=== PATIENT | female | born 1995 | race Caucasian/White ===

== ENCOUNTER 2018-05-25 13:22 | Emergency (ER) | payer OTHER ==
[~2018-05-25] VITALS: Ht 170.2 cm; Wt 65.8 kg
[~2018-05-25 13:22] MED LIST: ADVIL100 M2; APAP500; FLAGYL500 MG PO; NORCO 5-325 TA1 EACH PO
[2018-05-25 13:43] LABS: URINE BILIRUBIN NEGATIVE (Negative); URINE BLOOD NEGATIVE (Negative); URINE CLARITY CLEAR; URINE COLOR YELLOW; URINE GLUCOSE-RANDOM* NEGATIVE (Negative); URINE KETONES NEGATIVE (Negative); URINE LEUKOCYTES-REFLEX NEGATIVE (Negative); URINE NITRITE-REFLEX NEGATIVE (Negative); URINE PROTEIN (DIPSTICK) NEGATIVE (Negative); URINE SPECIFIC GRAVITY 1.015 (1.005-1.035); URINE UROBILINOGEN 0.2 E.U./dl (0.2-1.0)
[2018-05-25 14:32] LABS: ABSOLUTE NEUTROPHILS 3.9 thou/uL (1.4-8.2); BASOPHILS 0.8 % (0.0-2.0); EOSINOPHILS 3.4 % (0.0-3.0); HEMATOCRIT 36.5 % (37.0-47.0); HEMOGLOBIN 12.4 gm/dL (12.0-15.0); LYMPHOCYTES 30.4 % (24.0-44.0); MCH 29.1 pg (26.0-34.0); MCHC 33.9 g/dL (28.0-37.0); MONOCYTES 8.6 % (1.0-8.0); PLATELET COUNT 267 thou/uL (150-400); POLYS 56.8 % (36.0-66.0); RBC 4.24 mil/uL (4.20-5.00); RDW 13.7 % (10.5-14.5); WBC 6.9 thou/uL (4.0-11.0)
[2018-05-25 14:38] LABS: CALCIUM 8.9 mg/dL (8.5-10.1); CREATININE 0.7 mg/dL (0.6-1.0)
[2018-05-25] MEDS ORDERED: MOBIC15 MG PO (15:15)
[2018-05-25 15:28] VITALS: BP 111/57
== END 2018-05-25 15:29 | disposition home or self-care (01) ==
LOC: ER 13:22
PROVIDERS: Physician Assistant
DX: J02.9 Acute pharyngitis, unspecified (principal); B34.9 Viral infection, unspecified; Z87.891 Personal history of nicotine dependence

== ENCOUNTER 2018-06-18 10:55 | Emergency (ER) | payer OTHER ==
[~2018-06-18] VITALS: Ht 170.2 cm; Wt 68.0 kg
[~2018-06-18 10:55] MED LIST changes: +MOBIC15 MG PO
[2018-06-18] MEDS ORDERED: XANAX1 MG PO (11:01)
[2018-06-18] MEDS ORDERED: MOBIC7.5 MG PO (13:07)
[2018-06-18 13:30] VITALS: BP 122/74
== END 2018-06-18 13:31 | disposition home or self-care (01) ==
LOC: ER 10:55
DX: R07.89 Other chest pain (principal); Z87.891 Personal history of nicotine dependence

== ENCOUNTER 2018-06-19 17:55 | Observation (INO) | payer OTHER ==
[~2018-06-19] VITALS: Ht 170.2 cm; Wt 68.0 kg
--- NOTE | ~2018-06-19 | EKG ---
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
[~2018-06-19 17:55] MED LIST changes: +MOBIC7.5 MG PO; +XANAX1 MG PO
[2018-06-19 17:56] VITALS: BP 143/80
[2018-06-19 18:48] LABS: ABSOLUTE NEUTROPHILS 4.3 thou/uL (1.4-8.2); EOSINOPHILS 1.8 % (0.0-3.0); HEMATOCRIT 36.4 % (37.0-47.0); HEMOGLOBIN 12.2 gm/dL (12.0-15.0); LYMPHOCYTES 37.5 % (24.0-44.0); MCH 29.5 pg (26.0-34.0); MCHC 33.6 g/dL (28.0-37.0); MCV 87.8 fL (80.0-100.0); MONOCYTES 9.5 % (1.0-8.0); PLATELET COUNT 263 thou/uL (150-400); POLYS 50.2 % (36.0-66.0); RBC 4.14 mil/uL (4.20-5.00); RDW 13.9 % (10.5-14.5); WBC 8.6 thou/uL (4.0-11.0)
[2018-06-19 19:08] LABS: BUN 11 mg/dL (7-18); CALCIUM 9.2 mg/dL (8.5-10.1); CREATININE 0.7 mg/dL (0.6-1.0); GLUCOSE 94 mg/dL (74-106)
[2018-06-19 19:09] LABS: MAGNESIUM 1.9 mg/dL (1.8-2.4); SGOT 11 U/L (15-37); SGPT 37 U/L (30-65); TOTAL BILIRUBIN < 0.1 mg/dL (<0.1-1.0); TOTAL PROTEIN 7.6 g/dL (6.4-8.2); TROPONIN-I <0.06 ng/mL (<0.06)
[2018-06-19 19:12] LABS: AMP/METHAMP Negative (Negative); BARBITURATES Negative (Negative); BENZODIAZEPINES POSITIVE (Negative); COCAINE Negative (Negative); METHADONE Negative (Negative); OPIATES Negative (Negative); PCP Negative (Negative)
[2018-06-19 19:14] LABS: ANION GAP 9 mmol/L (7-16); CHLORIDE 104 mmol/L (98-107); CO2 28 mmol/L (21-32); POTASSIUM 3.7 mmol/L (3.5-5.1); SODIUM 141 mmol/L (136-145)
[2018-06-19 22:06] VITALS: BP 118/67
[2018-06-19 23:00] VITALS: BP 107/62
[2018-06-19 23:33] VITALS: BP 109/72
--- NOTE | 2018-06-20 04:02 | NUR ---
PT WAS ADMITTED TOP THE UNIT FROM THE ER IN A SATBLE CONDITION.ADMISSION HX,EDUCATION AND ASSESSMENT COMPLETED.PT C/O PAIN ON HER RIB STATED THAT THE CURRENT PAIN MED SHE WAS RECEIVING IS NOT EFFECTIVE,TAX EVALUATOR ON DUTY NOTIFIED,NEW ORDER NOTED AND CARRIED OUT.SPOUSE BY BEDSIDE.IVF INFUSING ORDERED.CALL LIGHT WITHIN REACH.
[2018-06-20 04:23] VITALS: BP 123/47
[2018-06-20 07:50] VITALS: BP 107/69
[2018-06-20 08:34] LABS: URINE BILIRUBIN NEGATIVE (Negative); URINE BLOOD NEGATIVE (Negative); URINE CLARITY CLEAR; URINE COLOR YELLOW; URINE GLUCOSE-RANDOM* NEGATIVE (Negative); URINE KETONES NEGATIVE (Negative); URINE LEUKOCYTES-REFLEX NEGATIVE (Negative); URINE NITRITE-REFLEX NEGATIVE (Negative); URINE PROTEIN (DIPSTICK) TRACE (Negative); URINE SPECIFIC GRAVITY 1.015 (1.005-1.035); URINE UROBILINOGEN 0.2 E.U./dl (0.2-1.0)
--- NOTE | 2018-06-20 13:40 | EKG ---
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
[2018-06-20 16:35] VITALS: BP 107/69
[2018-06-20 16:50] VITALS: BP 114/71
[2018-06-20 20:00] VITALS: BP 128/86
[2018-06-20 23:38] VITALS: BP 126/70
[2018-06-21 04:30] VITALS: BP 121/82
--- NOTE | 2018-06-21 05:25 | NUR ---
PT AMBULATING TO BATHROOM INDEPENDENTLY AND IS TOLERATING WELL. DILAUDID PROVIDING PAIN RELIEF. DENIES NAUSEA. RESTING COMFORTABLY. NO NEEDS VOICED. CALL LIGHT WITHIN REACH. WILL CONTINUE TO PROVIDE FREQUENT OBSERVATION.
[2018-06-21 07:31] VITALS: BP 141/88
[2018-06-21 10:38] VITALS: BP 141/88
[2018-06-21 10:41] VITALS: BP 141/88
[2018-06-21] MEDS ORDERED: TYLENOL EXTRA500 MG PO (11:03)
[2018-06-21] MEDS ORDERED: PROZAC 10 MG CA10 MG PO (11:03)
[2018-06-21] MEDS ORDERED: XANAX1 MG PO (11:03)
[2018-06-21] MEDS ORDERED: PEPCID20 MG PO (11:03)
[2018-06-21] MEDS ORDERED: IBUPROFEN 200200 M1 PO (11:03)
[2018-06-21 11:11] VITALS: BP 141/88
[2018-06-21 11:24] VITALS: BP 141/88
--- NOTE | 2018-06-21 11:27 | NUR ---
PT DISCHARGED AT THIS TIME STATED HAD TO DRIVE MOM TO [place] HAD FORGOTTEN MY DOESNT DRIVE THAT FAR. DISCHARGE PAPERS SIGNED COPY IN CHART AND ORIGINAL TO PATIENT. IV ACSESS DCD BELONGINGS PACKED AND SENT WITH PATIENT. DR PRATT HERE ON UNIT PATIENT STATES MOM OUT FROM WAITING. CM CALLED DR PRATT HAD PUT IN ORDER TO CONTACT [facility] CM FOR ASSISTANCE WITH OUTPT PCP AND PSYCHIATRY F/U OPTIONS. CM BONE PULLER KVNG STATED FOR PATIENT TO CALL FRIDAY AND ASK FOR CASE MANAGEMENT.
== END 2018-06-21 11:30 | disposition home or self-care (01) ==
LOC: ER 17:55 → EROBS 21:46 → 4E 23:01
PROVIDERS: Emergency Medicine; Nurse Practitioner Acute Care; ADMIT Hospitalist
DX: R07.89 Other chest pain (principal); F43.10 Post-traumatic stress disorder, unspecified; F32.9 Major depressive disorder, single episode, unspecified; F41.9 Anxiety disorder, unspecified; Z79.899 Other long term (current) drug therapy; Z23 Encounter for immunization

== ENCOUNTER 2018-12-02 20:57 | Emergency (ER) | payer OTHER ==
[~2018-12-02] VITALS: Ht 170.2 cm; Wt 77.6 kg
[~2018-12-02 20:57] MED LIST changes: +COLACE100 MG PO; +IBUPROFEN 200200 M1 PO; +MIRALAX17 GM PO; +PEPCID20 MG PO; +PHENERGAN 25 MG25 M1 PO; +PROZAC 10 MG CA10 MG PO; +TYLENOL EXTRA500 MG PO
[2018-12-02 21:14] LABS: URINE BLOOD NEGATIVE (Negative); URINE CLARITY CLEAR; URINE COLOR YELLOW; URINE GLUCOSE-RANDOM* NEGATIVE (Negative); URINE KETONES NEGATIVE (Negative); URINE LEUKOCYTES-REFLEX NEGATIVE (Negative); URINE NITRITE-REFLEX NEGATIVE (Negative); URINE PROTEIN (DIPSTICK) TRACE (Negative); URINE SPECIFIC GRAVITY 1.025 (1.005-1.035); URINE UROBILINOGEN 0.2 E.U./dl (0.2-1.0)
[2018-12-02 21:18] LABS: ICTOTEST (BILI CONFIRMATORY) Negative (Negative); URINE BILIRUBIN NEGATIVE (Negative)
[2018-12-02 21:35] LABS: ABSOLUTE NEUTROPHILS 6.7 thou/uL (1.4-8.2); BASOPHILS 0.6 % (0.0-2.0); EOSINOPHILS 3.5 % (0.0-3.0); HEMATOCRIT 36.7 % (37.0-47.0); HEMOGLOBIN 12.3 gm/dL (12.0-15.0); LYMPHOCYTES 25.3 % (24.0-44.0); MCH 28.8 pg (26.0-34.0); MCHC 33.5 g/dL (28.0-37.0); MCV 86.1 fL (80.0-100.0); MONOCYTES 6.3 % (1.0-8.0); PLATELET COUNT 262 thou/uL (150-400); POLYS 64.3 % (36.0-66.0); RBC 4.26 mil/uL (4.20-5.00); RDW 13.5 % (10.5-14.5); WBC 10.5 thou/uL (4.0-11.0)
[2018-12-02 21:39] LABS: CALCIUM 9.3 mg/dL (8.5-10.1); CREATININE 0.5 mg/dL (0.6-1.0); POTASSIUM 3.5 mmol/L (3.5-5.1)
[2018-12-02 21:47] LABS: ALBUMIN 3.7 g/dL (3.4-5.0); TOTAL BILIRUBIN 0.1 mg/dL (<0.1-1.0); TOTAL PROTEIN 7.9 g/dL (6.4-8.2)
[2018-12-03 00:14] VITALS: BP 110/69
== END 2018-12-03 00:15 | disposition home or self-care (01) ==
LOC: EDBD 20:57 → ER 20:57
PROVIDERS: Nurse Practitioner Family
DX: O26.891 Other specified pregnancy related conditions, first trimester (principal); Z3A.13 13 weeks gestation of pregnancy; R11.2 Nausea with vomiting, unspecified; F31.9 Bipolar disorder, unspecified; Z87.891 Personal history of nicotine dependence

== ENCOUNTER 2020-02-05 18:43 | Emergency (ER) | payer OTHER ==
[~2020-02-05] VITALS: Ht 170.2 cm; Wt 86.2 kg
[2020-02-05 19:20] LABS: ABSOLUTE NEUTROPHILS 5.8 thou/uL (1.4-8.2); BASOPHILS 1.2 % (0.0-2.0); EOSINOPHILS 3.4 % (0.0-3.0); HEMATOCRIT 38.8 % (37.0-47.0); HEMOGLOBIN 13.2 gm/dL (12.0-15.0); LYMPHOCYTES 29.6 % (24.0-44.0); MCH 28.4 pg (26.0-34.0); MCHC 34.1 g/dL (28.0-37.0); MCV 83.3 fL (80.0-100.0); MONOCYTES 9.4 % (1.0-8.0); PLATELET COUNT 337 thou/uL (150-400); POLYS 56.4 % (36.0-66.0); RBC 4.66 mil/uL (4.20-5.00); RDW 14.7 % (10.5-14.5); WBC 10.4 thou/uL (4.0-11.0)
[2020-02-05 19:27] LABS: CALCIUM 9.3 mg/dL (8.5-10.1); CREATININE 0.8 mg/dL (0.6-1.0); POTASSIUM 3.7 mmol/L (3.5-5.1)
[2020-02-05 19:33] LABS: TOTAL BILIRUBIN 0.2 mg/dL (0.2-1.0); TOTAL PROTEIN 8.6 g/dL (6.4-8.2)
[2020-02-05 20:27] LABS: URINE BILIRUBIN NEGATIVE (Negative); URINE BLOOD NEGATIVE (Negative); URINE CLARITY CLEAR; URINE COLOR YELLOW; URINE GLUCOSE-RANDOM* NEGATIVE (Negative); URINE KETONES NEGATIVE (Negative); URINE LEUKOCYTES-REFLEX NEGATIVE (Negative); URINE NITRITE-REFLEX NEGATIVE (Negative); URINE PROTEIN (DIPSTICK) NEGATIVE (Negative); URINE UROBILINOGEN 0.2 E.U./dl (0.2-1.0)
[2020-02-05] MEDS ORDERED: TRAMADOL 50 MG50 MG PO (21:24)
[2020-02-05] MEDS ORDERED: PRILOSEC OTC20 MG PO (21:24)
[2020-02-05] MEDS ORDERED: ONDANSETRON ODT8 MG PO ×2 (21:24→21:44)
[2020-02-05 21:46] VITALS: BP 118/69
--- NOTE | 2020-02-07 08:09 | EKG ---
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
== END 2020-02-05 21:49 | disposition home or self-care (01) ==
LOC: ER 18:43
PROVIDERS: Emergency Medicine
DX: R10.13 Epigastric pain (principal); R11.2 Nausea with vomiting, unspecified; R19.7 Diarrhea, unspecified; Z79.899 Other long term (current) drug therapy; Z87.891 Personal history of nicotine dependence